=== PATIENT | female | born 1955 | race Two or more races ===

== ENCOUNTER 2024-12-18 01:09 | Emergency (ER) | payer OTHER ==
[~2024-12-18] VITALS: Ht 157.5 cm; Wt 89.8 kg
[2024-12-18] MEDS ORDERED: PROVENTIL S2 MG/5 ML PO (01:24)
[2024-12-18] MEDS ORDERED: BUDESONIDE0.5 MG/2 M (01:24)
[2024-12-18] MEDS ORDERED: DIALYVITE TABL1 EACH (01:25)
[2024-12-18] MEDS ORDERED: PREVACID30 MG PO (01:25)
[2024-12-18] MEDS ORDERED: TRAMADOL HCL50 MG PO (01:25)
[2024-12-18] MEDS ORDERED: PLAVIX75 MG PO (01:26)
[2024-12-18] MEDS ORDERED: CARVEDILOL3.125 MG (01:26)
[2024-12-18] MEDS ORDERED: ATIVAN0.5 M1 PO (01:26)
[2024-12-18] MEDS ORDERED: ZETIA10 MG PO (01:26)
[2024-12-18] MEDS ORDERED: NASAL MIST126 ML (01:27)
== END 2024-12-18 02:07 | disposition home or self-care (01) ==
LOC: ER 01:09
DX: L02.91 Cutaneous abscess, unspecified (principal); Z88.0 Allergy status to penicillin; Z91.013 Allergy to seafood; Z91.018 Allergy to other foods; Z91.041 Radiographic dye allergy status